=== PATIENT | female | born 1990 | race Caucasian/White ===

== ENCOUNTER 2018-07-18 20:52 | Emergency (ER) | payer BC ==
--- NOTE | 2018-07-18 21:23 | ED.PDOC ---
History of Present Illness - General Chief Complaint: Fever Stated Complaint: Rt lower leg pain, fever Time Seen by Provider: 07/18/18 21:18 Source: patient, RN notes reviewed, Vital Signs reviewed Additional Information: 28 YEAR OLD HERE FOR EVALUATION OF FEVER AND DIZZINESS SHE IS 1 WEEK POST BABY DELIVERED IN [place] AND SHE IS BREAT FEEDING AT THIS TIME SHE HAD REPORTED RIGHT LEG PAIN TO HER OB DOCTOR WHO RECOMMENDED TO GO THE NEAREST ER TO RULE OUT DVT PE AWAKE ALERT TACHYCARDIC NO DISTRESS NO CLINICAL EVIDENCE OF DVT IN THE RIGHT LOWER EXTREMITY THERE IS NO SWELLING NO TENDERNESS NO HOMENS SIGN COMPARED TO THE LEFT LOWER EXTREMITY TO GIRTH DIFFERENCE BOTH MID CALF MEASURES 12.2 INCHES LUNGS CLEAR BREAST EXAM NORMAL ABD SOFT NO CVA TENDERNESS NO MENINGEAL SIGNS NO SKIN RASH FEW SHOTTY SUB MANDIBULAR LYMPH GLANDS TONSIL NORMAL - History of Present Illness Timing/Duration: 24 hours Severity: mild Improving Factors: nothing Worsening Factors: nothing Associated Symptoms: denies symptoms Allergies/Adverse Reactions: Allergies NO KNOWN ALLERGY Allergy (Verified 07/18/18 21:07) Home Medications: Ambulatory Orders Cephalexin Monohydrate [Keflex] 500 mg PO TID #30 cap 07/18/18 Review of Systems - Review of Systems Constitutional: States: fever EENTM: States: no symptoms reported Respiratory: States: no symptoms reported Cardiology: States: no symptoms reported Gastrointestinal/Abdominal: States: no symptoms reported Genitourinary: States: no symptoms reported Musculoskeletal: States: no symptoms reported Skin: States: no symptoms reported Neurological: States: no symptoms reported Endocrine: States: no symptoms reported Hematologic/Lymphatic: States: no symptoms reported Family Medical History - Family History Mother Family History: Unknown Physical Exam - Physical Exam General Appearance: Alert, Comfortable Eye Exam: bilateral normal Ears, Nose, Throat: hearing grossly normal, normal ENT inspection, normal ph arynx Neck: non-tender, full range of motion, supple Respiratory: chest non-tender, lungs clear, normal breath sounds, no respiratory distress, no accessory muscle use Cardiovascular/Chest: normal peripheral pulses, regular rate, rhythm, no edema, no gallop, no JVD Gastrointestinal/Abdominal: normal bowel sounds, non tender, soft, no organomegaly, no pulsatile mass Back Exam: no CVA tenderness, no vertebral tenderness Extremity: normal range of motion, non-tender, normal inspection Neurologic: afternoon babysitter II-XII nml as tested, no motor/sensory deficits, alert, normal mood/affect, oriented x 3 Progress - Results/Orders Results/Orders: Laboratory Tests 07/18/18 07/18/18 07/18/18 21:08 21:15 21:15 WBC 12.8 H RBC 3.41 L Hgb 11.1 L Hct 33.4 L MCV 98.0 MCH 32.4 H MCHC 33.1 RDW 13.2 Plt Count 182 MPV 9.9 Absolute Neuts (auto) 11.20 H Absolute Lymphs (auto) 0.80 L Absolute Monos (auto) 0.70 Absolute Eos (auto) 0.00 Absolute Basos (auto) 0.00 Neutrophils % 87.6 H Lymphocytes % 6.4 L Monocytes % 5.5 Eosinophils % 0.3 L Basophils % 0.2 Sodium 136 Potassium 3.4 L Chloride 106 Carbon Dioxide 22 Anion Gap 11.4 L BUN 16 Creatinine 0.81 BUN/Creatinine Ratio 19.8 Random Glucose 125 H Serum Osmolality 274.6 L Calcium 8.3 L Urine Color Yellow Urine Appearance Clear Urine pH 6.0 Ur Specific [place] <= 1.005 Urine Protein Negative Urine Glucose (UA) Negative Urine Ketones Negative Urine Blood Moderate H Urine Nitrite Negative Urine Bilirubin Negative Urine Urobilinogen 0.2 Ur Leukocyte Esterase Trace H Urine RBC 5-10 H Urine WBC 5-10 H Ur Epithelial Cells 1-3 Urine Bacteria 1+ Departure - Departure Clinical Impression: Urinary tract bacterial infections Time of Disposition: 22:07 Disposition: Discharge to Home or Self Care Condition: Good Departure Forms: ED Discharge - Pt. Copy, Patient Portal Self Enrollment Instructions: DI for Fever (Symptom) -- Adult Diet: resume usual diet Prescriptions: Cephalexin Monohydrate [Keflex] 500 mg PO TID #30 cap Home Medications: Ambulatory Orders Cephalexin Monohydrate [Keflex] 500 mg PO TID #30 cap 07/18/18
[2018-07-18] MEDS ORDERED: CEPHALEXIN MONOHYDRATE 500 MG CAP PO ONE (22:07)
[2018-07-19 01:15] VITALS: BP 107/66; TEMP 99.2; O2SAT 99
== END 2018-07-18 22:32 | disposition home or self-care (01) ==
LOC: ER 20:52
DX: O86.20 Urinary tract infection following delivery, unspecified (principal)

== ENCOUNTER → 2019-11-05 | Outpatient (CLI) | payer BC | LOC: LAB.O 13:25 | PROVIDERS: ATTEND General Practice | DX: O46.91 Antepartum hemorrhage, unspecified, first trimester (principal) ==

== ENCOUNTER → 2019-11-10 | Outpatient (CLI) | payer BC | LOC: LAB.O 14:07 | PROVIDERS: ATTEND Nurse Practitioner Women's Health | DX: O20.0 Threatened abortion (principal); Z3A.00 Weeks of gestation of pregnancy not specified ==